=== PATIENT | male | born 1965 | race Caucasian/White ===

== ENCOUNTER 2020-11-21 07:33 | Outpatient (NON) | payer BC, SELFPAY ==
[2020-11-21 19:55] LABS: SARS-CoV-2 RNA PCR Negative
== END 2020-11-21 07:34 ==
LOC: ANHCOVIDDT 07:36
PROVIDERS: PCP Family Medicine; Visit Provider Nurse Practitioner Adult Health
DX: R05 Cough (principal); Z20.828 Contact with and (suspected) exposure to other viral communicable diseases
CPT/HCPCS: 87635; C9803; U0003